=== PATIENT | male | born 1940 | race Caucasian/White ===

== ENCOUNTER 2016-06-10 01:36 | Emergency (ER) | payer MEDICARE, OTHER ==
[~2016-06-10 01:36] MED LIST: CORDARONE 200M200 MG PO; HYDROCHLOROTH12.5 MG PO; LOPRESSOR 25 MG25 MG PO; MIRAPEX0.5 MG PO; PROSCAR 5 MG TAB5 MG PO; PROTONIX40 MG PO; UROXATRAL10 MG PO; XARELTO20 MG PO; ZOCOR20 MG PO
[2016-06-10 03:17] LABS: HEMOGLOBIN 11.9 gm/dl (14.0-17.5); RED BLOOD COUNT 4.13 M/UL (4.20-5.50); WHITE BLOOD COUNT 6.4 K/UL (4.5-11.0)
[2016-06-10 03:38] LABS: BUN/CREATININE RATIO 24 (0-10)
== END 2016-06-10 05:15 | disposition home or self-care (01) ==
LOC: ER1 01:36
PROVIDERS: Emergency Medicine
DX: R10.9 Unspecified abdominal pain (principal); I25.10 Atherosclerotic heart disease of native coronary artery without angina pectoris; Z79.01 Long term (current) use of anticoagulants
CPT/HCPCS: 36415; 80053; 81001; 83690; 85025; 85610; 85730; 87086; 99284

== ENCOUNTER → 2016-10-31 | Outpatient (CLI) | payer MEDICARE, OTHER ==
[2016-10-31 12:02] LABS: BUN/CREATININE RATIO 31 (0-10)
== END ==
LOC: LAB 10:50
PROVIDERS: Internal Medicine Cardiovascular Disease
DX: I25.10 Atherosclerotic heart disease of native coronary artery without angina pectoris (principal); I50.32 Chronic diastolic (congestive) heart failure; R60.9 Edema, unspecified; R00.2 Palpitations; I48.91 Unspecified atrial fibrillation
CPT/HCPCS: 36415; 80048; 83880

== ENCOUNTER 2020-05-31 17:48 | Emergency (ER) | payer OTHER ==
[~2020-05-31 17:48] MED LIST changes: +BUMETANIDE2 MG PO; +CARBIDOPA-LEVO1 EA14 PO; +CRESTOR20 MG PO; +FLOMAX 0.4 MG0.4 MG PO; +IBUPROFEN600 MG PO; +K-DUR TAB 20 M20 MEQ PO; +LORTAB 5-325 M1 EACH PO; +MIRALAX 119 GR119 GM PO; +VITAMIN B-121000 MC3 PO; +XARELTO15 MG PO
[2020-05-31] MEDS ORDERED: CEPHALEXIN500 MG PO (18:44)
[2020-05-31] MEDS ORDERED: BACTRIM 400-801 EACH PO (18:44)
== END 2020-05-31 19:30 | disposition home or self-care (01) ==
LOC: ER1 17:48
DX: S60.512A Abrasion of left hand, initial encounter (principal); L03.114 Cellulitis of left upper limb; W01.0XXA Fall on same level from slipping, tripping and stumbling without subsequent striking against object, initial encounter; Y92.009 Unspecified place in unspecified non-institutional (private) residence as the place of occurrence of the external cause; I11.9 Hypertensive heart disease without heart failure; G20 Parkinson's disease; Z87.891 Personal history of nicotine dependence
CPT/HCPCS: 73110; 73130; 96374; 99283; J0690

== ENCOUNTER 2020-11-14 06:34 | Inpatient (IN) | payer OTHER ==
[~2020-11-14] VITALS: Ht 180.3 cm; Wt 87.0 kg
[~2020-11-14 06:34] MED LIST changes: +BACTRIM 400-801 EACH PO; +CEPHALEXIN500 MG PO; -XARELTO15 MG PO
[2020-11-14 08:28] LABS: HEMOGLOBIN 11.3 gm/dl (14.0-17.5); RED BLOOD COUNT 3.6 M/UL (4.20-5.50); WHITE BLOOD COUNT 11.2 K/UL (4.5-11.0)
[2020-11-14 08:45] LABS: BUN/CREATININE RATIO 16 (0-10)
[2020-11-14] MEDS ORDERED: XARELTO15 MG PO (10:11)
[2020-11-14] MEDS ORDERED: CRESTOR40 MG PO (14:37)
[2020-11-14] MEDS ORDERED: METOPROLOL SUCC25 MG PO (14:38)
[2020-11-14] MEDS ORDERED: LISINOPRIL10 MG PO (14:39)
[2020-11-14] MEDS ORDERED: FOLIC ACID1 MG PO (14:39)
[2020-11-14] MEDS ORDERED: BUMETANIDE2 MG PO (14:40)
[2020-11-14] MEDS ORDERED: CARBIDOPA-LEVO1 EAC6 PO (14:40)
[2020-11-14] MEDS ORDERED: VITAMIN D325 MCG PO (14:40)
[2020-11-14] MEDS ORDERED: ALENDRONATE SOD70 MG PO (14:41)
[2020-11-14] MEDS ORDERED: POTASSIUM CHLO10 ME1 PO (14:41)
[2020-11-14] MEDS ORDERED: MELATONIN5 M2 PO (14:43)
[2020-11-14] MEDS ORDERED: FERROUS SULFAT324 MG PO (14:45)
--- NOTE | 2020-11-15 03:08 | NUR ---
PT UP TO SIDE OF BED TO USE URINAL WITH ASSISTANCE. PROVIDED MEDICATIONS FOR PAIN PER MAR. PAIN IN LEFT ARM AT 8/. PROVIDED EMOTIONAL SUPPORT TO PATIENT REGARDING PASSING. NO OTHER NEEDS REQUESTED FROM THIS RN AT THIS TIME WCTM.
[2020-11-15 07:32] LABS: HEMOGLOBIN 10.3 gm/dl (14.0-17.5); RED BLOOD COUNT 3.24 M/UL (4.20-5.50)
[2020-11-15 07:34] LABS: WHITE BLOOD COUNT 6.6 K/UL (4.5-11.0)
[2020-11-16 06:11] LABS: RED BLOOD COUNT 3.15 M/UL (4.20-5.50); WHITE BLOOD COUNT 8.1 K/UL (4.5-11.0)
[2020-11-17 06:28] LABS: HEMOGLOBIN 10.3 gm/dl (14.0-17.5); RED BLOOD COUNT 3.26 M/UL (4.20-5.50); WHITE BLOOD COUNT 7.5 K/UL (4.5-11.0)
[2020-11-17 15:44] LABS: HEMOGLOBIN 8.9 gm/dl (14.0-17.5)
[2020-11-18 06:49] LABS: HEMOGLOBIN 10.3 gm/dl (14.0-17.5); RED BLOOD COUNT 3.34 M/UL (4.20-5.50); WHITE BLOOD COUNT 10.2 K/UL (4.5-11.0)
[2020-11-18] MEDS ORDERED: NEURONTIN300 MG PO (07:54)
[2020-11-18] MEDS ORDERED: MOBIC15 MG PO (07:54)
[2020-11-18] MEDS ORDERED: ROXICODONE TAB 55 MG PO (07:54)
[2020-11-18] MEDS ORDERED: ZOFRAN 4 MG TAB4 MG PO (07:54)
[2020-11-18] MEDS ORDERED: DOXYCYCLINE HY100 MG PO (07:54)
[2020-11-19 07:10] LABS: HEMOGLOBIN 8.7 gm/dl (14.0-17.5); WHITE BLOOD COUNT 9.9 K/UL (4.5-11.0)
[2020-11-19 07:11] LABS: RED BLOOD COUNT 2.78 M/UL (4.20-5.50)
[2020-11-20 06:10] LABS: HEMOGLOBIN 9.6 gm/dl (14.0-17.5); WHITE BLOOD COUNT 8.8 K/UL (4.5-11.0)
[2020-11-20 06:26] LABS: RED BLOOD COUNT 3.06 M/UL (4.20-5.50)
[2020-11-21 06:17] LABS: HEMOGLOBIN 8.9 gm/dl (14.0-17.5); RED BLOOD COUNT 2.89 M/UL (4.20-5.50)
== END 2020-11-21 15:22 | disposition home or self-care (01) | DRG 483 ==
LOC: ER1 06:34 → CDU 12:56 → M/S 12:56
PROVIDERS: Family Medicine; Internal Medicine; Physician Assistant; Physician Assistant Medical; ADMIT Internal Medicine
PROC: 30233N1 Transfusion of Nonautologous Red Blood Cells into Peripheral Vein, Percutaneous Approach (ICD-10-PCS; principal; 2020-11-16)
PROC: 0RRK0JZ Replacement of Left Shoulder Joint with Synthetic Substitute, Open Approach (ICD-10-PCS; 2020-11-17)
PROC: 0RPK0JZ Removal of Synthetic Substitute from Left Shoulder Joint, Open Approach (ICD-10-PCS; 2020-11-17)
DX: S42.202A Unspecified fracture of upper end of left humerus, initial encounter for closed fracture (principal); M97.32XA Periprosthetic fracture around internal prosthetic left shoulder joint, initial encounter; N17.9 Acute kidney failure, unspecified; E87.2 Acidosis; D62 Acute posthemorrhagic anemia; G20 Parkinson's disease; I48.91 Unspecified atrial fibrillation; J44.9 Chronic obstructive pulmonary disease, unspecified; N40.0 Benign prostatic hyperplasia without lower urinary tract symptoms; Z96.611 Presence of right artificial shoulder joint; Z20.822 Contact with and (suspected) exposure to COVID-19; I12.9 Hypertensive chronic kidney disease with stage 1 through stage 4 chronic kidney disease, or unspecified chronic kidney disease; N18.30 Chronic kidney disease, stage 3 unspecified; E78.5 Hyperlipidemia, unspecified; K59.00 Constipation, unspecified; W01.0XXA Fall on same level from slipping, tripping and stumbling without subsequent striking against object, initial encounter; Y93.89 Activity, other specified; Z98.890 Other specified postprocedural states; Z86.73 Personal history of transient ischemic attack (TIA), and cerebral infarction without residual deficits; Z79.01 Long term (current) use of anticoagulants; Z79.899 Other long term (current) drug therapy; Z87.891 Personal history of nicotine dependence
CPT/HCPCS: 36415; 70450; 71045; 71250; 73030; 73060; 73200; 80048; 80053; 80185; 81001; 82550; 82553; 83540; 83550; 83605; 83735; 83874; 83880; 84100; 84484; 85014; 85018; 85025; 85027; 85610; 86140; 86850; 86900; 86901; 86920; 87070; 93005; 97116-GP-CQ; 97161; 97166; 97535; 99285; C1762; J0690; J1100; J2001; J2370; J2405; J2704; J2710; J2795; J3010; J7030; J7120; P9016; U0002

== ENCOUNTER 2021-06-24 11:38 | Inpatient (IN) | payer OTHER ==
[~2021-06-24] VITALS: Ht 180.3 cm; Wt 81.6 kg
[~2021-06-24 11:38] MED LIST changes: +ALENDRONATE SOD70 MG PO; +AMIODARONE HCL200 MG PO; +CARBIDOPA-LEVO1 EAC6 PO; -CORDARONE 200M200 MG PO; +CRESTOR40 MG PO; +DOXYCYCLINE HY100 MG PO; +FERROUS SULFAT324 MG PO; +FOLIC ACID1 MG PO; +LISINOPRIL10 MG PO; +MELATONIN5 M2 PO; +METOPROLOL SUCC25 MG PO; +MOBIC15 MG PO; +NEURONTIN300 MG PO; +POTASSIUM CHLO10 ME1 PO; +ROXICODONE TAB 55 MG PO; +VITAMIN D325 MCG PO; +XARELTO15 MG PO; +ZOFRAN 4 MG TAB4 MG PO
[2021-06-24 13:01] LABS: WHITE BLOOD COUNT 10.3 K/UL (4.5-11.0)
[2021-06-24 13:02] LABS: HEMOGLOBIN 12.7 gm/dl (14.0-17.5); RED BLOOD COUNT 4.48 M/UL (4.20-5.50)
[2021-06-25 04:27] LABS: HEMOGLOBIN 12.4 gm/dl (14.0-17.5); RED BLOOD COUNT 4.36 M/UL (4.20-5.50)
[2021-06-25 04:38] LABS: WHITE BLOOD COUNT 13.9 K/UL (4.5-11.0)
[2021-06-25] MEDS ORDERED: VOLTAREN ARTHRI20 GM TOP (09:32)
[2021-06-25] MEDS ORDERED: DULOXETINE HCL20 MG PO (09:32)
[2021-06-25] MEDS ORDERED: ALLOPURINOL100 MG PO (09:32)
[2021-06-25] MEDS ORDERED: LISINOPRIL5 MG PO (09:33)
[2021-06-25] MEDS ORDERED: FINASTERIDE5 MG PO (09:33)
[2021-06-25] MEDS ORDERED: MIRALAX17 GM PO (09:33)
[2021-06-25] MEDS ORDERED: PREDNISONE20 MG PO (09:34)
--- NOTE | 2021-06-25 15:04 | NUR ---
Bladder scan performed at approximately [address] Hernandez's orders. Scan showed retention upwards of 700mL to 999mL remaining in bladder. A f/c is to be placed stat.
[2021-06-26 10:29] LABS: HEMOGLOBIN 11.9 gm/dl (14.0-17.5); RED BLOOD COUNT 4.15 M/UL (4.20-5.50); WHITE BLOOD COUNT 14.6 K/UL (4.5-11.0)
[2021-06-27 03:38] LABS: HEMOGLOBIN 11.9 gm/dl (14.0-17.5); RED BLOOD COUNT 4.2 M/UL (4.20-5.50)
--- NOTE | 2021-06-27 06:04 | NUR ---
06/27/21 0600 - [facility] CALLED FOR UPDATE ON PATIENT. CURRENTLY NO BEDS AVAILABLE AT [facility].
[2021-06-28 04:10] LABS: HEMOGLOBIN 10.9 gm/dl (14.0-17.5); RED BLOOD COUNT 3.87 M/UL (4.20-5.50); WHITE BLOOD COUNT 10.7 K/UL (4.5-11.0)
--- NOTE | 2021-06-28 09:08 | NUR ---
MADE AWARE OF LOW BP AT THIS TIME. NEW ORDERS TO HOLD CERTAIN MEDIOCATIONS GIVEN.
[2021-06-28] MEDS ORDERED: FUROSEMIDE10 MG/1 M1 IV ×2 (11:52→12:17)
[2021-06-28] MEDS ORDERED: DOXYCYCLINE HY100 M2 PO (11:52)
[2021-06-28] MEDS ORDERED: LOPRESSOR 25 MG25 MG PO (11:52)
[2021-06-28] MEDS ORDERED: VANCOMYCIN IV (12:17)
[2021-06-28] MEDS ORDERED: METOPROLOL IVP (12:17)
[2021-06-28] MEDS ORDERED: MEROPENEM IV (12:17)
--- NOTE | 2021-06-28 12:42 | NUR ---
[facility] CONTACTED AT THIS TIME FOR TRANSPORT.
--- NOTE | 2021-06-28 15:06 | NUR ---
DISCHARGE AND PLAN TO TRANFER DISCUSSED WITH PATIENT AND FAMILY. THEY BOTH VERBALZIED UNDERSTANDING AND WERE BOTH IN AGREEANCE WITH THE TREATMENT PLAN.
--- NOTE | 2021-06-28 15:36 | NUR ---
REPORT CALLED TO [facility] AT THIS TIME. SPOKE WITH TRICIA MENDEZ
[2021-06-29 08:17] LABS: HBSAG SCREEN Negative (Negative); HCV AB 0.1 (0.0-0.9); HEP A AB, IGM Negative (Negative); HEP B CORE AB, IGM Negative (Negative)
== END 2021-06-28 15:06 | disposition short-term general hospital (02) | DRG 871 ==
LOC: ER1 11:38 → CDU 14:13 → MED SURG 4 14:13
PROVIDERS: Internal Medicine; Internal Medicine Nephrology; Nurse Practitioner; ADMIT Internal Medicine
PROC: 3E03329 Introduction of Other Anti-infective into Peripheral Vein, Percutaneous Approach (ICD-10-PCS; 2021-06-24)
PROC: B24BZZZ Ultrasonography of Heart with Aorta (ICD-10-PCS; principal; 2021-06-27)
DX: A41.9 Sepsis, unspecified organism (principal); J96.01 Acute respiratory failure with hypoxia; Z20.822 Contact with and (suspected) exposure to COVID-19; J15.9 Unspecified bacterial pneumonia; M62.82 Rhabdomyolysis; N17.9 Acute kidney failure, unspecified; E87.1 Hypo-osmolality and hyponatremia; I13.0 Hypertensive heart and chronic kidney disease with heart failure and stage 1 through stage 4 chronic kidney disease, or unspecified chronic kidney disease; J44.1 Chronic obstructive pulmonary disease with (acute) exacerbation; E87.2 Acidosis; R65.20 Severe sepsis without septic shock; N40.0 Benign prostatic hyperplasia without lower urinary tract symptoms; G62.9 Polyneuropathy, unspecified; F10.10 Alcohol abuse, uncomplicated; W18.30XA Fall on same level, unspecified, initial encounter; E78.5 Hyperlipidemia, unspecified; I50.9 Heart failure, unspecified; N18.30 Chronic kidney disease, stage 3 unspecified; R79.89 Other specified abnormal findings of blood chemistry; I48.91 Unspecified atrial fibrillation; Z79.01 Long term (current) use of anticoagulants; Z86.73 Personal history of transient ischemic attack (TIA), and cerebral infarction without residual deficits; Z98.890 Other specified postprocedural states; Z87.891 Personal history of nicotine dependence; Z82.49 Family history of ischemic heart disease and other diseases of the circulatory system; Z84.89 Family history of other specified conditions
CPT/HCPCS: ECHO; 0240U; 36415; 36600; 70450; 71045; 71250; 80048; 80053; 80074; 80076; 80202; 80307; 81001; 82140; 82550; 82553; 82803; 83605; 83615; 83880; 84484; 84550; 85025; 85027; 85379; 85610; 85652; 86140; 87040; 93005; 93306; 93970; 96374; 96375; 97110; 97161; 99285; G0480; J0456; J0696; J1940; J2185; J3370; J7030; J7070

== ENCOUNTER 2021-07-31 22:48 | Inpatient (IN) | payer OTHER ==
[~2021-07-31] VITALS: Ht 180.3 cm; Wt 89.8 kg
[~2021-07-31 22:48] MED LIST changes: +ALLOPURINOL100 MG PO; +DOXYCYCLINE HY100 M2 PO; +DULOXETINE HCL60 MG PO; +FINASTERIDE5 MG PO; +FUROSEMIDE10 MG/1 M1 IV; +LISINOPRIL5 MG PO; +MEROPENEM IV; +METOPROLOL IVP; +MIRALAX17 GM PO; +PREDNISONE20 MG PO; +VANCOMYCIN IV; +VOLTAREN ARTHRI20 GM TOP
[2021-07-31 23:53] LABS: HEMOGLOBIN 11.3 gm/dl (14.0-17.5); RED BLOOD COUNT 4.21 M/UL (4.20-5.50); WHITE BLOOD COUNT 6.9 K/UL (4.5-11.0)
[2021-08-04 08:47] LABS: HEMOGLOBIN 11.1 gm/dl (14.0-17.5); RED BLOOD COUNT 4.08 M/UL (4.20-5.50); WHITE BLOOD COUNT 8.3 K/UL (4.5-11.0)
[2021-08-04] MEDS ORDERED: POTASSIUM CHLO10 ME1 PO ×2 (09:20→09:21)
[2021-08-04] MEDS ORDERED: BUMETANIDE2 MG PO ×2 (09:22)
[2021-08-04] MEDS ORDERED: MELATONIN3 MG PO (09:22)
[2021-08-04] MEDS ORDERED: ALLOPURINOL100 MG PO (12:08)
[2021-08-04] MEDS ORDERED: ELIQUIS5 MG PO (12:09)
[2021-08-04] MEDS ORDERED: AMIODARONE HCL200 MG PO (12:09)
[2021-08-04] MEDS ORDERED: CARBIDOPA-LEVO1 EA14 PO (12:10)
[2021-08-04] MEDS ORDERED: FOLIC ACID1 MG PO (12:11)
[2021-08-04] MEDS ORDERED: FINASTERIDE5 MG PO (12:11)
[2021-08-04] MEDS ORDERED: VITAMIN B-121000 MCG PO (12:11)
[2021-08-04] MEDS ORDERED: ROBAXIN 750 MG750 MG PO (12:13)
[2021-08-04] MEDS ORDERED: MIRALAX 119 GR119 GM PO (12:13)
[2021-08-04] MEDS ORDERED: FLOMAX0.4 MG PO (12:27)
[2021-08-04] MEDS ORDERED: SENNA8.6 MG PO (12:27)
[2021-08-04] MEDS ORDERED: TRAMADOL HCL50 MG PO (12:28)
[2021-08-04] MEDS ORDERED: VITAMIN D325 MCG PO (12:30)
[2021-08-05 04:09] LABS: HEMOGLOBIN 10.9 gm/dl (14.0-17.5); RED BLOOD COUNT 4.05 M/UL (4.20-5.50); WHITE BLOOD COUNT 7.4 K/UL (4.5-11.0)
[2021-08-06 02:08] LABS: HEMOGLOBIN 11.7 gm/dl (14.0-17.5); RED BLOOD COUNT 4.37 M/UL (4.20-5.50)
[2021-08-06 02:10] LABS: WHITE BLOOD COUNT 10.4 K/UL (4.5-11.0)
[2021-08-07 03:02] LABS: HEMOGLOBIN 11.2 gm/dl (14.0-17.5); RED BLOOD COUNT 4.21 M/UL (4.20-5.50); WHITE BLOOD COUNT 8.2 K/UL (4.5-11.0)
--- NOTE | 2021-08-07 23:23 | NUR ---
CALLED LAB ABOUT HEPARIN PTT RESULTS, ARTIFICIAL FLOWERS DYER STATES THEY CANNOT GET IT TO RESULT, ADVISED WE NEED A REDRAW
--- NOTE | 2021-08-07 23:26 | NUR ---
NATHALIA, FILING WRITER STATES THAT [facility] PTT WILL NOT READ BECAUSE PTT SHOWING TOO HIGH, TURNED OFF HEPARIN AND ORDERED REDRAW TO CONFIRM
[2021-08-10 04:18] LABS: HEMOGLOBIN 11.8 gm/dl (14.0-17.5); RED BLOOD COUNT 4.34 M/UL (4.20-5.50)
[2021-08-11 04:21] LABS: HEMOGLOBIN 12.5 gm/dl (14.0-17.5); RED BLOOD COUNT 4.63 M/UL (4.20-5.50); WHITE BLOOD COUNT 9.4 K/UL (4.5-11.0)
[2021-08-11] MEDS ORDERED: FAMOTIDINE20 MG PO (16:30)
[2021-08-11] MEDS ORDERED: POTASSIUM CHLO10 MEQ PO (16:30)
[2021-08-11] MEDS ORDERED: CHRONULAC20 GM/30 M PO (16:30)
[2021-08-11] MEDS ORDERED: ASPIRIN EC81 MG PO (16:30)
[2021-08-11] MEDS ORDERED: BUMETANIDE1 MG PO (16:30)
[2021-08-11] MEDS ORDERED: ATORVASTATIN CA20 MG PO (16:30)
[2021-08-11] MEDS ORDERED: PREDNISONE 20 M20 MG PO (16:30)
[2021-08-11] MEDS ORDERED: DIGOXIN125 MCG PO (16:30)
[2021-08-11] MEDS ORDERED: IPRATROPIU0.2 MG/1 M NEB (16:30)
[2021-08-11] MEDS ORDERED: ELIQUIS 5 MG TAB5 MG PO (16:30)
[2021-08-11] MEDS ORDERED: MIDODRINE HCL2.5 MG PO (16:30)
== END 2021-08-11 21:20 | disposition home or self-care (01) | DRG 291 ==
LOC: ER1 22:48 → CDU 08-01 01:12 → PROG CARE 08-01 01:12
PROVIDERS: Internal Medicine; Internal Medicine Nephrology; Physician Assistant; ADMIT Internal Medicine
PROC: 3E043XZ Introduction of Vasopressor into Central Vein, Percutaneous Approach (ICD-10-PCS; principal; 2021-08-01)
DX: I13.0 Hypertensive heart and chronic kidney disease with heart failure and stage 1 through stage 4 chronic kidney disease, or unspecified chronic kidney disease (principal); Z20.822 Contact with and (suspected) exposure to COVID-19; I50.23 Acute on chronic systolic (congestive) heart failure; R57.0 Cardiogenic shock; J96.21 Acute and chronic respiratory failure with hypoxia; J18.9 Pneumonia, unspecified organism; N17.9 Acute kidney failure, unspecified; I47.1 Supraventricular tachycardia; N18.4 Chronic kidney disease, stage 4 (severe); E87.1 Hypo-osmolality and hyponatremia; E87.3 Alkalosis; E87.2 Acidosis; D63.1 Anemia in chronic kidney disease; E78.5 Hyperlipidemia, unspecified; I27.20 Pulmonary hypertension, unspecified; I48.0 Paroxysmal atrial fibrillation; I25.5 Ischemic cardiomyopathy; I44.7 Left bundle-branch block, unspecified; I35.0 Nonrheumatic aortic (valve) stenosis; E87.6 Hypokalemia; D50.9 Iron deficiency anemia, unspecified; I42.0 Dilated cardiomyopathy; N40.0 Benign prostatic hyperplasia without lower urinary tract symptoms; I25.10 Atherosclerotic heart disease of native coronary artery without angina pectoris; J44.9 Chronic obstructive pulmonary disease, unspecified; Z79.01 Long term (current) use of anticoagulants; Z87.891 Personal history of nicotine dependence; Z98.890 Other specified postprocedural states; Z83.3 Family history of diabetes mellitus; Z82.49 Family history of ischemic heart disease and other diseases of the circulatory system; R33.9 Retention of urine, unspecified
CPT/HCPCS: 36415; 36600; 71045; 80048; 80053; 80061; 81001; 82043; 82550; 82553; 82570; 82728; 82746; 82803; 83036; 83540; 83550; 83735; 83880; 84100; 84156; 84439; 84443; 84484; 84550; 85025; 85027; 85610; 85730; 86140; 89050; 93005; 93925; 93970; 94640; 94664; 94760; 96374; 97116; 97116-GP-CQ; 97161; 97530; 99285; J1160; J1250; J1644; J1756; J1940; J2370; J7030; P9047

== ENCOUNTER 2021-09-02 07:05 | Inpatient (IN) | payer OTHER ==
[~2021-09-02] VITALS: Ht 180.3 cm; Wt 84.1 kg
[~2021-09-02 07:05] MED LIST changes: +ASPIRIN EC81 MG PO; +ATORVASTATIN CA20 MG PO; +BUMETANIDE1 MG PO; +CHRONULAC20 GM/30 M PO; +DIGOXIN125 MCG PO; +ELIQUIS 5 MG TAB5 MG PO; +ELIQUIS5 MG PO; +FAMOTIDINE20 MG PO; +IPRATROPIU0.2 MG/1 M NEB; +MELATONIN3 MG PO; +MIDODRINE HCL2.5 MG PO; +POTASSIUM CHLO10 MEQ PO; +PREDNISONE 20 M20 MG PO; +ROBAXIN 750 MG750 MG PO; +SENNA8.6 MG PO; +TRAMADOL HCL50 MG PO; +VITAMIN B-121000 MCG PO
[2021-09-02] MEDS ORDERED: ATORVASTATIN CA40 MG PO (10:38)
[2021-09-02] MEDS ORDERED: BUMETANIDE2 MG PO (10:38)
[2021-09-02] MEDS ORDERED: LISINOPRIL5 MG PO (10:39)
[2021-09-02] MEDS ORDERED: POTASSIUM CHLO20 ME2 PO (10:39)
[2021-09-02] MEDS ORDERED: ROBAXIN 750 MG750 MG PO (10:39)
[2021-09-02 11:40] LABS: RED BLOOD COUNT 4.04 M/UL (4.20-5.50); WHITE BLOOD COUNT 7.2 K/UL (4.5-11.0)
[2021-09-03 01:47] LABS: HEMOGLOBIN 10.6 gm/dl (14.0-17.5); RED BLOOD COUNT 3.9 M/UL (4.20-5.50); WHITE BLOOD COUNT 6.5 K/UL (4.5-11.0)
== END 2021-09-03 17:04 | disposition home or self-care (01) | DRG 291 ==
LOC: ER1 07:05 → PROG CARE 09:05 → CDU 09:05 → PROG CARE 13:08
PROVIDERS: Emergency Medicine; Physician Assistant; ADMIT Internal Medicine
DX: I13.0 Hypertensive heart and chronic kidney disease with heart failure and stage 1 through stage 4 chronic kidney disease, or unspecified chronic kidney disease (principal); I50.23 Acute on chronic systolic (congestive) heart failure; J96.01 Acute respiratory failure with hypoxia; I47.1 Supraventricular tachycardia; I42.0 Dilated cardiomyopathy; I35.0 Nonrheumatic aortic (valve) stenosis; R74.01 Elevation of levels of liver transaminase levels; N40.0 Benign prostatic hyperplasia without lower urinary tract symptoms; M10.9 Gout, unspecified; I48.0 Paroxysmal atrial fibrillation; I27.20 Pulmonary hypertension, unspecified; E78.5 Hyperlipidemia, unspecified; G20 Parkinson's disease; N18.30 Chronic kidney disease, stage 3 unspecified; I44.7 Left bundle-branch block, unspecified; J44.9 Chronic obstructive pulmonary disease, unspecified; Z87.01 Personal history of pneumonia (recurrent); Z87.891 Personal history of nicotine dependence; Z82.49 Family history of ischemic heart disease and other diseases of the circulatory system; Z79.01 Long term (current) use of anticoagulants; Z83.3 Family history of diabetes mellitus
CPT/HCPCS: 36415; 71045; 80048; 80053; 82550; 82553; 83735; 83880; 84484; 85025; 93005; 94664; 96365; 96375; 99285; J1160; J2060